=== PATIENT | female | born 2000 | race Caucasian/White ===

== ENCOUNTER 2023-10-27 10:28 | Emergency (ER) | payer MEDICAID, SELFPAY ==
[2023-10-27 10:31] VITALS: BP 134/86; PULSE 77; RESP 18; TEMP 36.7; O2SAT 98; BMI 49.9
--- NOTE | 2023-10-27 10:41 | ED_ITS ---
HPI - URI/Sore Throat General: Chief Complaint: Upper Respiratory Infection Stated Complaint: congestion,cough Time Seen by Provider: 10/27/23 10:34 Source: patient Mode of arrival: ambulatory Limitations: no limitations History of Present Illness: 23-year-old female who states that she h ad cough congestion and sneezing over the last 2 days. She denies any fever denies any dyspnea patient is 90% on room air. No history of any lung issues she is currently 6 months she has no related complaints at this time denies any abdominal pain denies any vaginal bleeding. Associated symptoms: Reports nasal congestion; Deny abdominal pain, chills, chest pain, diarrhea, fever(s), headache(s), nausea or vomiting Review of Systems Const: Denies: fever(s), chills or change in appetite Eyes: Denies: eye discomfort ENMT: Reports: nasal congestion; Denies: throat pain or dental pain Card: Denies: chest pain Resp: Reports: non-productive cough; Denies: dyspnea GI: Denies: abdominal pain, nausea, vomiting or diarrhea Musc: Denies: neck pain or back pain Skin/Breast: Denies: rash Neuro: Denies: headache(s) Physical Exam Const: COMMON NORMALS: no acute distress, patient oriented x3 and healthy appearing HENMT: COMMON NORMALS: normocephalic, atraumatic and TM's normal bilaterally HEAD & SCALP: normocephalic and atraumatic TYMPANIC MEMBRANE: TM's normal bilaterally MOUTH: Normal oral and palatal mucosa present THROAT: posterior oropharynx normal Eye: COMMON NORMALS: conjunctivae normal CONJUNCTIVA: Yes conjunctivae normal Neck/C-Spine: COMMON NORMALS: full ROM and supple Chest: COMMONS NORMALS: normal inspection of the chest Resp: COMMON NORMALS: normal respiratory effort, No retractions, No use of accessory muscles and clear to auscultation bilaterally AUSCULTATION: clear to auscultation bilaterally Cardio: COMMON NORMALS: regular rate, regular rhythm and No murmurs present (Cardio) RATE: regular rate RHYTHM: regular rhythm GI: COMMON NORMALS: Normal to inspection, nondistended, normoactive bowel sounds present, Soft to palpation, non-tender and no masses PALPATION: Yes Soft to palpation Extremity: COMMON NORMALS: normal to inspection and full ROM Neuro: COMMON NORMALS: patient oriented x3, moves all extremities and no focal motor deficits Psych: COMMON NORMALS: mental status grossly normal, Normal thought process present and cooperative THOUGHT PROCESS: Normal thought process present Skin: COMMON NORMALS: no rashes or lesions noted and no wounds GENERAL SKIN EXAM: no rashes or lesions noted Course Vital Signs: Vital signs: Vital Signs Temperature 98.1 F 10/27/23 10:31 Pulse Rate 77 10/27/23 10:31 Respiratory Rate 18 10/27/23 10:31 Blood Pressure 134/86 10/27/23 10:31 Pulse Oximetry 98 10/27/23 10:31 Oxygen Delivery Me thod Room Air 10/27/23 10:31 MDM - URI/Sore Throat Medical Decision Making Patient presents here with likely viral upper restaurant infection she is well- appearing here she has no signs of pneumonia vitals are normal did give her Decadron we will do a respiratory panel it is pending informed her we will call her with results she is to follow-up with her OB return if worsening. Medical Records I reviewed the patient's medical records. No radiology studies performed this visit Discharge Plan Discharge Patient Disposition: Home Clinical Impression: Upper respiratory infection Qualifiers: URI type: unspecified URI Qualified Code(s): J06.9 - Acute upper respiratory infection, unspecified Condition: Stable Discharge Orders: Discharge ED (Routine); Ordered 10/27/23 Ordered By: Amrita Cates Discharge Diet: Advance as tolerated Discharge Activity: Resume usual activity Patient Instructions: Upper Respiratory Infection (ED) Coding Level of Care Code ED Vehicle Detailer for Celeste Sanchez
[2023-10-27] MEDS: dexamethasone 10 mg/mL INJ IM (11:07)
[2023-10-27 11:08] VITALS: BP 134/86; PULSE 77; RESP 18; TEMP 36.7; O2SAT 98
[2023-10-27 12:55] LABS: Adenovirus Not Detected (NOT DETECT); Chlamydia Pneumoniae Not Detected (NOT DETECT); Coronavirus 229E,HKU1,NL63,OC4 Not Detected (NOT DETECT); Human Metapneumovirus Not Detected (NOT DETECT); Human Rhinovirus/Enterovirus Not Detected (NOT DETECT); Influenza A Not Detected (NOT DETECT); Influenza A H1 Not Detected (NOT DETECT); Influenza A H1-2009 Not Detected (NOT DETECT); Influenza A H3 Not Detected (NOT DETECT); Influenza B Not Detected (NOT DETECT); Mycoplasma Pneumoniae Not Detected (NOT DETECT); Parainfluenza Virus Type 1 Not Detected (NOT DETECT); Parainfluenza Virus Type 2 Not Detected (NOT DETECT); Parainfluenza Virus Type 3 Not Detected (NOT DETECT); Parainfluenza Virus Type 4 Not Detected (NOT DETECT); Respiratory Syncytial Virus A Not Detected (NOT DETECT); Respiratory Syncytial Virus B Not Detected (NOT DETECT); SARS-COV-2 Not Detected (NOT DETECT)
== END 2023-10-27 11:09 | disposition home or self-care (01) ==
PROVIDERS: Emergency Provider Emergency Medicine
DX: J06.9 Acute upper respiratory infection, unspecified (principal)
CPT/HCPCS: 87486; 87581; 87633; 96372; 99284; J1100

== ENCOUNTER 2023-11-13 18:07 | Outpatient (CLI) | payer MEDICAID, SELFPAY ==
[2023-11-13] VITALS (14 sets, daily range): BP systolic 99–129; BP diastolic 57–78; PULSE 67–113; RESP 18; TEMP 36.6; BMI 51.2
[2023-11-13 19:26] LABS: Bilirubin Urine Neg (Negative); Blood Urine Neg (Negative); Glucose Urine UA Norm (Normal); Ketones Urine Negative (Negative); Leukocyte Esterase Urine Negative (Negative); Nitrate Urine Negative (Negative); Protein Urine Neg (Negative); RBC Urine 0-4 /hpf (0-2); Specific Gravity, Urine 1.005 (1.005-1.030); Squamous Epithelial Cell Urine 15-25 /hpf (0-5); Urine Appearance Cloudy (CLEAR); Urine Color Light yellow (Yellow); Urobilinogen Urine Neg (Negative); WBC Urine 15-25 /hpf (0-5); pH Urine 7 (5-7)
[2023-11-13 19:27] LABS: Bacteria Urine 1+ /hpf; Mucus Urine TRACE /hpf
[2023-11-13 19:27] LABS: Glucose Point of Care 102 mg/dL (70-110)
[2023-11-13 19:30] LABS: Nitrazine Paper, PH Inconclusive
[2023-11-13 19:43] LABS: Actim Prom Negative
[2023-11-13 19:43] LABS: Amphetamines Screen Urine Negative (Negative); Barbiturates Screen Urine Negative (Negative); Benzodiazepines Screen Urine Negative (Negative); Cocaine Screen Urine Negative (Negative); Opiate Screen Urine Negative (Negative); PCP Screen Urine Negative (Negative); THC Screen Urine Negative (Negative)
[2023-11-13 21:17] LABS: Urine Appearance Clear (CLEAR); Urine Color Colorless (Yellow); pH Urine 6.5 (5-7)
[2023-11-13 21:18] LABS: Bacteria Urine TRACE /hpf; Bilirubin Urine Neg (Negative); Blood Urine Neg (Negative); Glucose Urine UA Norm (Normal); Ketones Urine Negative (Negative); Leukocyte Esterase Urine Negative (Negative); Nitrate Urine Negative (Negative); Protein Urine Neg (Negative); RBC Urine 0-4 /hpf (0-2); Squamous Epithelial Cell Urine 0-4 /hpf (0-5); Urobilinogen Urine Neg (Negative); WBC Urine 0-4 /hpf (0-5)
[2023-11-13] MEDS: lactated ringers 1,000 ML 999 ML IV (21:25)
[2023-11-14 15:41] LABS: Estmated Average Glucose 88; Hemoglobin A1C 4.7 % (4.0-6.0)
== END 2023-11-13 22:30 | disposition home or self-care (01) ==
LOC: OPOB 18:09 → OBGYN 18:10
PROVIDERS: Visit Provider Family Medicine
DX: O26.899 Other specified pregnancy related conditions, unspecified trimester (principal); Z3A.00 Weeks of gestation of pregnancy not specified; N89.8 Other specified noninflammatory disorders of vagina; M54.9 Dorsalgia, unspecified
CPT/HCPCS: 36415; 36416; 51702; 59025; 80306; 81001; 82962; 83036; 83986; 84112; 99211; J7120

== ENCOUNTER → 2023-11-22 07:48 | Outpatient (BNVA) | payer MEDICAID, SELFPAY | PROVIDERS: Visit Provider Nurse Practitioner Women's Health | DX: Z34.90 Encounter for supervision of normal pregnancy, unspecified, unspecified trimester (principal) | CPT/HCPCS: 80307; 81000; 82950; 85025; 86592; 86762; 86803; 86850; 86900; 87086; 87340; 87491; 87591; 87806 ==

== ENCOUNTER 2023-11-25 18:47 | Outpatient (CLI) | payer MEDICAID, SELFPAY ==
[2023-11-25] VITALS (9 sets, daily range): BP systolic 98–146; BP diastolic 53–81; PULSE 84–109; RESP 16; TEMP 36.1; BMI 51.9
[2023-11-25] MEDS: NIFEdipine 10 mg Capsule 30 MG PO (20:11)
--- NOTE | 2023-11-25 20:25 | P.TNLD_ITS ---
OB L&D Triage Visit Information: Date of evaluation: 11/25/23 Comments/Additional reason(s) for visit: 23 y.o. A1 EDC February 17, 2024 At 28 w 0 d First visit here on November 22, 2023 Transfer of care from [place] Presents to L&D c/o uterine contractions Has been having contractions x more than one week States pain is 6-8 out of 10 No bleeding, fluid leakage + movements POBHx: at term x two PMHx: bipolar I disorder ADHD narcolepsy Evaluation: monitor accelerations: Present 15x15 Vital signs: Vital Signs - 24 hr 11/25/23 18:54 11/25/23 18:58 11/25/23 19:13 Temperature Pulse Rate 109 H 95 Respiratory Rate Blood Pressure 136/61 146/81 Oxygen Delivery Me thod Room Air 11/25/23 19:28 11/25/23 19:43 11/25/23 19:48 Temperature Pulse Rate 104 H 101 H Respiratory Rate Blood Pressure 134/69 137/74 Oxygen Delivery Me thod Room Air 11/25/23 20:01 11/25/23 20:14 11/25/23 20:14 Temperature Pulse Rate 89 Respiratory Rate Blood Pressure 129/63 Oxygen Delivery Me thod Room Air 11/25/23 20:28 11/25/23 20:28 11/25/23 20:43 Temperature Pulse Rate 90 Respiratory Rate Blood Pressure 114/58 109/59 Oxygen Delivery Me thod 11/25/23 20:43 11/25/23 20:48 11/25/23 20:48 Temperature Pulse Rate 84 88 Respiratory Rate Blood Pressure 98/53 Oxygen Delivery Me thod 11/25/23 20:57 Temperature 97.0 F L Pulse Rate 88 Respiratory Rate 16 Blood Pressure 98/53 Oxygen Delivery Me thod Care JAVIER Calculator Estimated Delivery Date Method Current WG Current Estimate 02/17/24 Ultrasound #1 28w 1d Other Estimates 01/28/24 LMP (Uncertain) 31w 0d Expected Delivery Route/Plan Weight 310 lbs; 5?5? VS normal Comfortable, in no discomfort Awake, alert Abd: soft, nontender Cervix: long / closed / high Ext: normal External monitor: rare uterine contractions heart tracing good variability Specific Issues/Plans * Morbid obesity * Insufficient care * BIPOLAR Final Diagnosis Final Diagnosis (1) Supervision of other normal : Plan: 28 w 0 d c/o uterine contractions no evidence of labor Likely Rajeev-Spence contractions Plan discharge to home f/u with next OB visit Rest, fluids Labor precautions given Call / return if uterine contractions regular, every 10-15 minutes, strong Or if bleeding, fluid leakage Status: Acute Code(s): Z34.80 - Encounter for supervision of other normal , unspecified trimester Coding Level of Care Code Acute Code for Chg Fwd Diagnoses Supervision of other normal Z34.80 Time Spent (min) 60
== END 2023-11-25 20:57 | disposition home or self-care (01) ==
LOC: OPOB 18:48 → OBGYN 18:49
PROVIDERS: Visit Provider Obstetrics & Gynecology
DX: O26.893 Other specified pregnancy related conditions, third trimester (principal); Z3A.28 28 weeks gestation of pregnancy; R10.9 Unspecified abdominal pain
CPT/HCPCS: 59025; 99211

== ENCOUNTER → 2023-12-01 09:24 | Outpatient (BNVA) | payer MEDICAID, SELFPAY | PROVIDERS: Visit Provider Nurse Practitioner Women's Health | DX: Z34.90 Encounter for supervision of normal pregnancy, unspecified, unspecified trimester (principal) | CPT/HCPCS: 76805 ==

== ENCOUNTER → 2023-12-08 08:23 | Outpatient (BNVA) | payer MEDICAID, SELFPAY | PROVIDERS: Visit Provider Obstetrics & Gynecology | DX: Z34.80 Encounter for supervision of other normal pregnancy, unspecified trimester (principal) | CPT/HCPCS: 81000; 85025; 87086 ==

== ENCOUNTER → 2023-12-14 14:23 | Outpatient (BNVA) | payer MEDICAID, SELFPAY | PROVIDERS: Visit Provider Obstetrics & Gynecology | DX: Z34.00 Encounter for supervision of normal first pregnancy, unspecified trimester (principal) | CPT/HCPCS: 76816 ==

== ENCOUNTER → 2023-12-26 08:07 | Outpatient (BNVA) | payer MEDICAID, SELFPAY | PROVIDERS: Visit Provider Obstetrics & Gynecology | DX: Z34.80 Encounter for supervision of other normal pregnancy, unspecified trimester (principal) | CPT/HCPCS: 81000 ==

== ENCOUNTER 2024-01-03 13:16 | Outpatient (CLI) | payer MEDICAID, SELFPAY ==
[2024-01-03 13:21] VITALS: BMI 51.5
[2024-01-03 13:30] VITALS: RESP 18
[2024-01-03 13:33] VITALS: BP 115/54; PULSE 127
[2024-01-03 13:48] VITALS: BP 119/63; PULSE 100
[2024-01-03 14:01] LABS: Bilirubin Urine 1+ (Negative); Blood Urine Neg (Negative); Glucose Urine UA Norm (Normal); Ketones Urine 1+ (Negative); Leukocyte Esterase Urine 2+ (Negative); Nitrate Urine Negative (Negative); Protein Urine Neg (Negative); Specific Gravity, Urine 1.025 (1.005-1.030); Urine Appearance Hazy (CLEAR); Urine Color Yellow (Yellow); Urobilinogen Urine 1 mg/dL (Negative); pH Urine 5 (5-7)
[2024-01-03 14:03] VITALS: BP 118/59; PULSE 100
[2024-01-03 14:09] LABS: Add Urine Culture? Yes; Bacteria Urine TRACE /hpf; Mucus Urine 3+ /hpf; RBC Urine 0-4 /hpf (0-2); Transitional Epi Cells Urine 0-4 /hpf
[2024-01-03 14:18] VITALS: BP 125/57; PULSE 95
[2024-01-03 14:33] VITALS: RESP 18
== END 2024-01-03 14:50 | disposition home or self-care (01) ==
LOC: OPOB 13:20 → OBGYN 13:28
PROVIDERS: Visit Provider Obstetrics & Gynecology
DX: O26.899 Other specified pregnancy related conditions, unspecified trimester (principal); Z3A.00 Weeks of gestation of pregnancy not specified; R10.9 Unspecified abdominal pain
CPT/HCPCS: 59025; 81001; 87086; 99211

== ENCOUNTER → 2024-01-06 08:30 | Outpatient (BNVA) | payer MEDICAID, SELFPAY | PROVIDERS: Visit Provider Nurse Practitioner Women's Health | DX: Z34.80 Encounter for supervision of other normal pregnancy, unspecified trimester (principal) | CPT/HCPCS: 81000 ==

== ENCOUNTER → 2024-01-20 08:00 | Outpatient (BNVA) | payer MEDICAID, SELFPAY | PROVIDERS: Visit Provider Obstetrics & Gynecology | DX: Z34.80 Encounter for supervision of other normal pregnancy, unspecified trimester (principal) | CPT/HCPCS: 81000; 87081 ==

== ENCOUNTER → 2024-02-01 08:12 | Outpatient (BNVA) | payer MEDICAID, SELFPAY | PROVIDERS: Visit Provider Obstetrics & Gynecology | DX: Z34.80 Encounter for supervision of other normal pregnancy, unspecified trimester (principal) | CPT/HCPCS: 81000 ==

== ENCOUNTER 2024-02-08 19:50 | Outpatient (CLI) | payer MEDICAID, SELFPAY ==
[2024-02-08 19:00] VITALS: BMI 52.9
[2024-02-08 20:11] VITALS: BP 130/78; PULSE 105
[2024-02-08 20:26] VITALS: BP 126/72; PULSE 82
[2024-02-08 20:32] VITALS: TEMP 35.7
[2024-02-08 20:33] VITALS: BP 118/59; PULSE 82
== END 2024-02-08 20:42 | disposition home or self-care (01) ==
LOC: OPOB 19:51 → OBGYN 19:52
PROVIDERS: Visit Provider Obstetrics & Gynecology
DX: O36.8190 Decreased fetal movements, unspecified trimester, not applicable or unspecified (principal); Z3A.00 Weeks of gestation of pregnancy not specified
CPT/HCPCS: 59025; 99211

== ENCOUNTER 2024-02-10 17:39 | Inpatient (IN) | payer MEDICAID, SELFPAY ==
[2024-02-10] VITALS (11 sets, daily range): BP systolic 118–142; BP diastolic 65–93; PULSE 68–95; TEMP 36.4; BMI 52.0
[2024-02-10 18:19] LABS: Basophils % 0.2 %; Eosinophils % 0.3 %; Hematocrit 36.1 % (36-47); Lymphocytes # 1.9 10^3/uL (0.8-4.8); Lymphocytes % 19.2 %; Mean Corpuscular HGB Conc 31.6 g/dL (30-55); Mean Corpuscular Hemoglobin 25.3 pg (27-33); Mean Corpuscular Volume 80.2 fl (85-98); Mean Platelet Volume 11.6 fL (7.4-10.4); Monocytes # 0.4 10^3/uL (0.2-0.9); Monocytes % 4.5 %; Neutrophils % 75.4 %; Nucleated Red Blood Cells % 0 %; Platelet Count 238 10^3/cmm (157-399); Red Cell Distribution Width 15.8 % (12.1-15.1); White Blood Count 9.69 10^3/uL (3.29-11.43)
[2024-02-10] MEDS: miSOPROStol 100 mcg tablet 25 MCG VAGINAL (18:25)
[2024-02-10] MEDS: lactated ringers 1,000 ML 999 ML IV (22:40)
--- NOTE | 2024-02-10 23:42 | PM.OPHPUD ---
Labor & Delivery H&P Update Date of Procedure: February 11, 2024 Date H&P Performed: 02/10/24 H&P update information: I have reviewed H&P completed within last 30 days, I have examined patient prior to procedure and No changes to prior documentation Admission Diagnosis: Preop diagnosis: Intra uterine
[2024-02-11] VITALS (83 sets, daily range): BP systolic 103–166; BP diastolic 56–103; PULSE 63–112; RESP 16; TEMP 36.2–36.9; O2SAT 97–100
[2024-02-11] MEDS: ROPivacaine syringe 100 MG/50 ML SYRINGE 10 MG EPIDURAL ×4 (00:57→11:11)
[2024-02-11] MEDS: dextrose 5%-lactated ringers 1,000 ML 125 ML IV (00:58)
--- NOTE | 2024-02-11 00:59 | ANES.PREANE2 ---
Pre-Anesthetic Assessment Height/Weight: Height 1.65 m Weight 141.974 kg Temp Pulse BP Pulse Ox O2 Del Method 97.5 F L 95 136/67 98 Room Air 02/10/24 18:28 02/11/24 00:57 02/11/24 00:57 02/11/24 00:54 02/10/24 18:00 Preop Diagnosis: Intra uterine labor epidural Familial anesthetic complications: none Was Beta Olu taken within 24 hours: N/A Was Clonidine taken within 24 hours: N/A Last intake: solids @2100, liquids @0000 Social Tobacco and No alcohol Exam alert, oriented x 3, clear to auscultation bilaterally and regular rate & rhythm Airway Mallampati: Class III Dentition: full History/ROS No significant history except as noted Pulmonary None reported CV/HEM None reported None reported Hepatic None reported GI Gastroesophageal Reflux Disease Metabolic Morbid Obesity [facility] [place] None reported Neuropsych None reported Anesthetic Plan ASA status: 3 Anesthesia: Anesthesia Evaluation and Regional (specify below) (epidural ) Risk of > 500 ml blood loss (7ml/kg in children): Yes, adequate IV access and fluids planned Medications/Allergies Home Medications Medication Instructions Recorded Confirmed Last Taken Type ondansetron HCl 4 mg tablet 4 mg PO Q8H PRN nausea and 02/01/24 02/10/24 Unknown Rx vomiting #30 tabs Allergies Allergy/AdvReac Type Severity Reaction Status Date / Time diphenhydramine Allergy ALGY-Difficulty Verified 02/10/24 14:37 [From Benadryl] Breathing Current Medications Generic Name Dose Route Start Last Admin Trade Name Freq PRN Reason Stop Dose Admin Lactated Ringer's 1,000 mls @ 999 mls/hr 02/10/24 17:33 02/10/24 22:40 Lactated Ringers IV 999 mls/hr .Q1H1M PRN Administration Per L&D Rescitation Protocol Dextrose/Lactated Ringer's 1,000 mls @ 125 mls/hr 02/10/24 17:45 02/11/24 00:58 Dextrose 5%-Lactated Ringers IV 125 mls/hr .Q8H JOURDAN Administration Ropivacaine 100 mg in 50 mls @ 10 mls/hr 02/10/24 23:30 02/11/24 00:57 Naropin Syringe EPIDURAL 10 mls/hr .Q5H JOURDAN Administration Misoprostol 25 mcg 02/10/24 18:30 02/10/24 18:25 Misoprostol 100 Mcg Tablet VAGINAL 02/11/24 02:31 25 mcg Q4H JOURDAN Administration PFSH Anesthesia Medical History Sleep apnea Bipolar 1 disorder Oppositional defiant disorder Narcolepsy ADHD No pertinent past medical history neghx: htn,dm,thryoid,dvt/pe PCP: none History of gestational diabetes Surgical History H/O dilation and curettage (~09/2022) Family History Grandmother Breast cancer maternal Mother Diabetes Father Diabetes Heart disease Hypertension Hyperlipidemia Stroke Thyroid disease Denies family history of Colon cancer Ovarian cancer Prostate cancer Uterine cancer Data Anesthesia 02/10/24 18:05 Short CBC 02/10/24 Range/Units 18:05 WBC 9.69 (3.29-11.43) 10^3/uL Hgb 11.40 (11.27-16.99) g/dL Hct 36.1 (36-47) % MCV 80.2 L (85-98) fl Plt Count 238 (157-399) 10^3/cmm Neut % (Auto) 75.4 % Neut # (Auto) 7.30 (1.8-7.7) 10^3/uL Blood Bank 02/10/24 18:05 Blood Type A Positive Rho(D) Type Rh positive Antibody Screen Negative Cardiac Studies: No Data to Display Anesthesia Procedures Epidural Time Out Performed: Yes Consents Signed: Procedure Consent Consent: requested by attending/covering physician, from patient, risks and benefits reviewed and patient agrees to proceed Lumbar Level: L3-L4 Epidural position: sitting Epidural procedure: sterile prep of area, 1% lidocaine to numb the area, 18 g needle, negative for paresthesia passed, neg for paresthesia, test dose given, 1.5% xylocaine 1:200k epi, 0.2% Ropivacaine bolus ml (5), placed PCEA, no systemic response, sterile dressing applied, L.U.D. no apparent complications and 0.2% Ropiavacaine @ mls/hr (13) Additional Comments: epidural placement attempted x3, 3rd attempt successful, VISH 7cm and catheter easily threaded to 5cm in the space. Pt educated on [employer], and reporting decreased pain with contractions.
[2024-02-11] MEDS: miSOPROStol 100 mcg tablet 25 MCG VAGINAL (03:08)
[2024-02-11] MEDS: oxytocin 30 UNIT/500 ML BAG IV (08:25)
--- NOTE | 2024-02-11 11:43 | PM.DELIVERY ---
Delivery Note: Date of delivery: February 11, 2024 Pre-delivery diagnoses: Term Late care Obesity Post-delivery diagnoses: Same Term delivered Procedure: A spontaneous vaginal delivery Delivering Physician: Micha Kulkarni MD Estimated blood loss (mL): 300 Findings: Female infant weight 3270 Apgars 8/9 Pre-Delivery Course: The patient is a 23yo G[1]P[0] at [] weeks EGA who has been receiving care from [facility]. She was admitted for elective induction HPI: Received late care. Daily vitamins since start of care. labs have all been normal, including negative for HIV. She was found to negative for Group B Strep from screening at 36 weeks. She has loss approximately 4 lbs since that start of care at 27 weeks. She denies a history of HTN during . Glucose tolerance screening for gestational diabetes was negative. Delivery: The patient was noted to be complete and pushing, when the nurse call, shortly after that the kinga's came out of the room notifying she was pushing the baby out, she was placed in the dorsal lithotomy position by nurse and had a precipitus delivery. The patient was noted to have epidural anesthesia. At 1123 the patient delivered a viable 39 weeks female infant weighing 3270 g with scores of 8 and 9 at one and five minutes, respectively. The vertex was delivered spontaneously over intact perineum. The was easily delivered and the oropharynx and nasopharynx was bulb suctioned by nursing personnel. The infant was noted to have spontaneous cry and spontaneous movement of all four extremities. The cord was clamped x 2 and cut and noted to have 2 arteries and one vein. The infant was passed to the mother's abdomen where nursing personnel were in attendance. The placenta delivered intact spontaneously and the uterus was explored. 20 units of Pitocin was placed in the IV bag to firm the uterus. Examination of the cervix and vaginal vault did not reveal any lacerations. A vaginal pack was then placed. Examination of the perineum showed no lacerations. The vaginal pack was then removed. The patient tolerated this procedure well, and recovered in L&D with her in their LDR room. All sponge and needle counts were correct. Post-Delivery Status: Good and stable History History History 4 Term 2 0 Miscarriages/Ectopic 1 Living Children 2 Coding Level of Care Code Acute Code for Chg Fwd
[2024-02-11] MEDS: ibuprofen 800 mg tablet PO ×2 (14:50→20:08)
[2024-02-11] MEDS: lanolin oint 7 gm 1 APPLIC TOPICAL (20:08)
[2024-02-12 00:47] LABS: Hematocrit 32.2 % (36-47); Mean Corpuscular HGB Conc 32.3 g/dL (30-55); Mean Corpuscular Hemoglobin 25.5 pg (27-33); Mean Corpuscular Volume 78.9 fl (85-98); Mean Platelet Volume 11.9 fL (7.4-10.4); Platelet Count 219 10^3/cmm (157-399); Red Blood Count 4.08 10^6/uL (3.85-5.65); Red Cell Distribution Width 15.7 % (12.1-15.1); White Blood Count 11.11 10^3/uL (3.29-11.43)
[2024-02-12 03:27] VITALS: BP 122/83; PULSE 77; RESP 16; TEMP 36.7; O2SAT 97
[2024-02-12] MEDS: ibuprofen 800 mg tablet PO (08:45)
[2024-02-12] MEDS: PRENATAL VIT NO.130/IRON/FOLIC 1 EACH TABLET PO (08:45)
[2024-02-12] MEDS: docusate sodium 100 mg Capsule PO (08:45)
[2024-02-12 10:11] VITALS: BP 107/72; PULSE 99; RESP 15; TEMP 36.6; TEMP 36.7; O2SAT 98
--- NOTE | 2024-02-12 10:48 | P.DS_ITS ---
Discharge Providers COMPOSITE TECHNICIAN Date of Admission: 02/10/24 17:39 Date of Discharge: 02/12/24 Attending Provider at Admission: Micha Kulkarni MD Attending Provider at Discharge: Micha Kulkarni MD Primary COMPOSITE TECHNICIAN: Micha Kulkarni MD Reason for Visit Reason for Visit: IOL Hospital Course Hospital Course Ms. Yuan is a 23 year old new patient with unknown LMP 04/23/2023 (uncertain) JAVIER 02/17/2024 based on 6 week sonogram, placing her at 39-1/7 weeks gestation. Admitted to labor and delivery for elective induction. Misoprostol was given for cervical ripening then follow-up with oxytocin for labor augmentation. She progressed to have a rapidly progressing and precipitous delivery without complications. She delivered a term female infant, with a bir thweight of 3270 with Apgars 8/9. observation was uneventful. Tolerating diet well. Ambulating without difficulty. She is afebrile hemodynamically stable day 1. She was counseled regarding pelvic rest for 6 weeks (no sex, no tampons, no vaginal douches). Return to the emergency room if any fever, increased bleeding or pain. Information Peripartum Data: Delivery Method: Vaginal Physical Exam Narrative: GA; alert and oriented x 3 HEENT: normal Breasts: engorged Nipples - skin intact Lungs; clear to auscultation Heart: regular rhythm, no murmurs. Abd: Appropriately tender. BS+. Uterine fundus below umbilicus. No Fundal Tenderness. Perineum: normal lochia. Extremities: no edema, no cyanosis, no tenderness. Urinary Catheter Management: Rice: Cath Placed During This Visit: yes, but has since been removed by the nurse Reason for Continuing Indwelling Catheter: Decision to DC Catheter Urinary Catheter Date of Insertion: 02/11/24 Urinary Catheter Time of Insertion: 01:42 Date Urinary Catheter Removed: 02/11/24 Time Urinary Catheter Discontinued: 11:30 History History History 4 Term 2 0 Miscarriages/Ectopic 1 Living Children 2 Discharge Data Studies Completed and Pending Laboratory Results WBC 11.11 10^3/uL (3.29-11.43) 02/12/24 00:15 RBC 4.08 10^6/uL (3.85-5.65) 02/12/24 00:15 Hgb 10.40 g/dL (11.27-16.99) L 02/12/24 00:15 Hct 32.2 % (36-47) L 02/12/24 00:15 MCV 78.9 fl (85-98) L 02/12/24 00:15 MCH 25.5 pg (27-33) L 02/12/24 00:15 MCHC 32.3 g/dL (30-55) 02/12/24 00:15 RDW 15.7 % (12.1-15.1) H 02/12/24 00:15 Plt Count 219 10^3/cmm (157-399) 02/12/24 00:15 MPV 11.9 fL (7.4-10.4) H 02/12/24 00:15 Neut % (Auto) 75.4 % 02/10/24 18:05 Lymph % (Auto) 19.2 % 02/10/24 18:05 [place] % (Auto) 4.5 % 02/10/24 18:05 Eos % (Auto) 0.3 % 02/10/24 18:05 Baso % (Auto) 0.2 % 02/10/24 18:05 Neut # (Auto) 7.30 10^3/uL (1.8-7.7) 02/10/24 18:05 Lymph # (Auto) 1.9 10^3/uL (0.8-4.8) 02/10/24 18:05 [place] # (Auto) 0.4 10^3/uL (0.2-0.9) 02/10/24 18:05 Eos # (Auto) 0.0 10^3/uL (0.0-0.8) 02/10/24 18:05 Baso # (Auto) 0.0 10^3/uL (0.0-0.1) 02/10/24 18:05 Nucleated RBC % (auto) 0 % 02/10/24 18:05 Nucleated RBCs # 0.0 /100WBC 02/10/24 18:05 Blood Type A Positive 02/10/24 18:05 Rho(D) Type Rh positive 02/10/24 18:05 Antibody Screen Negative 02/10/24 18:05 Vitals Last Vital Signs Temp 98.0 F 02/12/24 10:11 Pulse 99 02/12/24 10:11 Resp 15 02/12/24 10:11 BP 107/72 02/12/24 10:11 Pulse Ox 98 02/12/24 10:11 O2 Del Method Room Air 02/12/24 10:11 Results Labs OB ([facility]): Obstetrics US 12/14/23 Blood Type A Positive 02/10/24 Antibody Screen Negative 02/10/24 Hct 32.2 % (36-47) L 02/12/24 Hgb 10.40 g/dL (11.27-16.99) L 02/12/24 Rho(D) Type Rh positive 02/10/24 Plt Count 219 10^3/cmm (157-399) 02/12/24 Hep Bs Antigen Non-reactive (Nonreactive) 11/22/23 Hepatitis C Antibody Non-reactive (Nonreactive) 11/22/23 Rubella IgG Antibody 124.1 IU/mL (0.0-10.0) H 11/22/23 RPR Nonreactive (Nonreactive) 11/22/23 HIV 1&2 Ab & HIV 1 Ag Non-reactive (Non-Reactiv) 11/22/23 C.trachomatis RNA (TMA) Not detected (NOT DETECTED) N.gonorrhoeae RNA (TMA) Not detected (NOT DETECTED) T. vaginalis Amp RNA Not detected (NOT DETECTED) 11/22/23 Chlamydia/GC Comment See note 11/22/23 Glucose 1 Hr 50 gm 121 mg/dL (85-140) 11/22/23 Hemoglobin A1c 4.7 % (4.0-6.0) 11/13/23 Urine Opiates Screen Negative ng/mL (Negative) 11/22/23 Ur Barbiturates Screen Negative ng/mL (Negative) 11/22/23 Ur Phencyclidine Scrn Negative ng/mL (Negative) 11/22/23 Ur Amphetamines Screen Negative ng/mL (Negative) 11/22/23 U Benzodiazepines Scrn Negative ng/mL (Negative) 11/22/23 Urine Cocaine Screen Negative ng/mL (Negative) 11/22/23 U Marijuana (THC) Screen Negative ng/mL (Negative) 11/22/23 Micro Urine Specimen 01/03/24 Discharge Plan Discharge Patient Disposition: Home Condition: Stable Prescriptions: New acetaminophen 325 mg capsule 325 mg PO Q4H PRN (Reason: fever or pain) Qty: 60 0RF ibuprofen 800 mg tablet 800 mg PO TID PRN (Reason: pain) Qty: 60 0RF docusate sodium [Colace] 100 mg capsule 100 mg PO BID Qty: 60 0RF ferrous sulfate [Iron (ferrous sulfate)] 325 mg (65 mg iron) tablet 325 mg PO BID Qty: 60 0RF Discontinued ondansetron HCl 4 mg tablet 4 mg PO Q8H PRN (Reason: nausea and vomiting) Qty: 30 1RF Discharge Orders: Discharge Order (Routine); Ordered 02/12/24 Ordered By: Micha Kulkarni Referrals: Micha Kulkarni MD [Physician] - 6 Weeks Discharge Diet: Usual diet Discharge Activity: Limit activity as instructed Patient Instructions: Depression (DC), Opioid Safety (DC), Preeclampsia and Eclampsia After Delivery (GEN), Hemorrhage (DC), OB Discharge Report, OB Food/Drug Interaction Guide, Opioid Safety, OB Home Care, OB Vaginal Deliveries - [facility], Abnormal Bleeding Activity Restrictions/Additional Instructions: 1. Please call [facility] clinic on next working day to make your appointment in 6 weeks. 2. Please stay home until you come back to the clinic on first post- hospatilization check up. 3. Please follow instructions on your medications CAREFULLY. 4. If you have abdominal incision, do not cover it unless dressing is necessary because of drainage. OK to shower, but avoid bath. Leave steri-strips until they fall off. If they are still on one week after surgery, you may remove them. 5. If you had vaginal surgery or vaginal repair, Dr. Kulkarni may instruct you to take SITZ bath. 6. Yellow, blood tinged odorous vaginal discharge is usually normal after hysterectomy or vaginal surgeries. 7. No SEXUAL INTERCOURSE, tampons, or douches until you are completely released from the post-operative care. 8. Avoid constipation by eating right and maybe using some Metamucil or Milk of Magnesia. 9. All prescription refills are given during the working hours. Please do no wait till it runs out. Call the clinic at [phone] before your medication runs out. The clinic will get in touch with your doctor to prescribe medications if necessary. 10. Please remain within 40 mile radius from our hospital because emergencies do happen now and then during the post-operative period. 11. If you have stairs at home, take one step at a time slowly and minimize the number of trips. It helps to stay in one floor for the next few days. No lifting except what you can lift by one hand until you are released from the post-operative care. 12. Driving is discouraged until you are well healed. It may be 3-4 weeks before you feel strong enough to drive. You should be able to turn and look through the rear window without pain and you should be able to push the brake pedal very hard without pain before you drive. No fast rules, but SAFETY should be your primary concern. DO NOT drive if you are on sedating medications such as narcotics. 13. Call the clinic (during working hours) to make urgent appointment or go to the Emergency room, if any of the following occurs: i. Vaginal bleeding becomes heavy, more than a period. ii. Incision becomes red and sore, or drains pus. iii. Your TEMPERATURE is over 100.4F or you have chill. iv. IV site becomes red and swollen (a little ``knot?? is usually OK) v. Persistent nausea and vomiting vi. Persistent constipation or diarrhea vii. Rash or allergic reaction to medications. Discharge Attestations COMPOSITE TECHNICIAN Time Spent in Discharge Care*: greater than 30 min Coding Level of Care Code Acute Code for Chg Daniel
[2024-02-12 12:45] VITALS: BP 136/72; PULSE 82; RESP 18; TEMP 36.4; O2SAT 98
--- NOTE | 2024-02-12 14:28 | ANE.PACU2 ---
Inpatient post-anesthesia follow up: Airway intact: Yes Vital signs: Temperature 97.6 F Pulse Rate 82 Respiratory Rate 18 Blood Pressure 136/72 Pulse Oximetry 98 Oxygen Delivery Me thod Room Air Oxygen Flow Rate Fraction of Inspir ed Oxygen Hydration adequate: Yes Nausea and vomiting: No Pain level: 1 Mental status: Baseline Epidural Start/End: Epidural Start Date: 02/11/24 Epidural Start Time: 00:17 Epidural End Date: 02/11/24 Epidural End Time: 14:04
== END 2024-02-12 12:50 | disposition home or self-care (01) | DRG 807 ==
LOC: OPOB 17:40 → OBGYN 17:40
PROVIDERS: Admitting Provider Obstetrics & Gynecology; Visit Provider Obstetrics & Gynecology
DX: O99.214 Obesity complicating childbirth (principal); Z37.0 Single live birth; Z3A.39 39 weeks gestation of pregnancy
CPT/HCPCS: 36415; 51702; 59025; 59409; 84315; 85025; 85027; 86850; 86900; J2590; J2795; J7120; J7121

== ENCOUNTER 2024-02-14 19:50 | Emergency (ER) | payer MEDICAID, SELFPAY ==
[2024-02-14] VITALS (7 sets, daily range): BP systolic 137–152; BP diastolic 88–112; PULSE 70–83; RESP 18; TEMP 36.8; O2SAT 95–99; BMI 50.8
[2024-02-14 20:25] LABS: Basophils % 0.3 %; Eosinophils # 0.2 10^3/uL (0.0-0.8); Eosinophils % 2.9 %; Hematocrit 31.9 % (36-47); Lymphocytes # 1.8 10^3/uL (0.8-4.8); Lymphocytes % 25.8 %; Mean Corpuscular HGB Conc 31.7 g/dL (30-55); Mean Corpuscular Hemoglobin 25.4 pg (27-33); Mean Corpuscular Volume 80.2 fl (85-98); Mean Platelet Volume 11.2 fL (7.4-10.4); Monocytes # 0.4 10^3/uL (0.2-0.9); Monocytes % 5.7 %; Neutrophils # 4.64 10^3/uL (1.8-7.7); Nucleated Red Blood Cells % 0 %; Platelet Count 263 10^3/cmm (157-399); Red Blood Count 3.98 10^6/uL (3.85-5.65); Red Cell Distribution Width 15.9 % (12.1-15.1); White Blood Count 7.14 10^3/uL (3.29-11.43)
[2024-02-14 20:43] LABS: Alanine Aminotransferase 16 U/L (0-33); Albumin Level 3.2 g/dL (3.5-5.2); Alkaline Phosphatase 138 U/L (35-105); Anion Gap 11.1 (5-19); Aspartate Amino Transferase 16 U/L (0-32); Blood Urea Nitrogen 13 mg/dL (6-20); Calcium 9.2 mg/dL (8.5-10.5); Carbon Dioxide 26 mmol/L (22-29); Chloride 106 mmol/L (98-107); Creatinine Clr Calc Pharmacy 181.4177; Globulin 2.9 g/dL (1.3-4.6); Glomerular Filtration Rate 102.8 mL/min (90-130); Glucose 93 mg/dL (65-115); Lactate Dehydrogenase 138 U/L (135-214); Osmolality Calculated 288 mOsm/kg (285-295); Potassium 4.1 mmol/L (3.5-5.1); Sodium 139 mmol/L (136-145); Total Bilirubin 0.2 mg/dL (0.15-1.2); Total Protein 6.1 g/dL (6.6-8.7)
--- NOTE | 2024-02-14 21:06 | ED_ITS ---
HPI - General Adult 2 General: Chief complaint: General Medical Stated complaint: Hbp swelling headache OB sent Time Seen by Provider: 02/14/24 20:50 History of Present Illness: Patient presents to the ER with complaints of 3-day history of hand leg and face swelling as well as high blood pressure and headache. Patient is status post vaginal delivery without complications x 3 days. Patient stated they were watching her blood pressure while she was but she was on no medicine. Patient does not normally get headaches. Patient said when she was she was frequently swollen but it would go down at night or when she lay down but this is not going down. Patient delivery was done by Dr. Kulkarni Review of Systems 2 General: Reports: 10 or more systems reviewed and unremarkable except in HPI and below PFSH ED 2 PFSH: Medical History Sleep apnea Bipolar 1 disorder Oppositional defiant disorder Narcolepsy ADHD No pertinent past medical history neghx: htn,dm,thryoid,dvt/pe PCP: none History of gestational diabetes Surgical History H/O dilation and curettage (~09/2022) Family History Grandmother Breast cancer maternal Mother Diabetes Father Diabetes Heart disease Hypertension Hyperlipidemia Stroke Thyroid disease Denies family history of Colon cancer Ovarian cancer Prostate cancer Uterine cancer Physical Exam 2 Const: COMMON NORMALS: no acute distress, average body habitus, patient oriented x3, no limitations, healthy appearing, alert and well nourished HENMT: COMMON NORMALS: normocephalic, atraumatic, hearing grossly normal bilaterally, external ears normal, Normal external nose present and moist oral mucous membranes HEAD & SCALP: normocephalic and atraumatic NOSE: Normal external nose present EXTERNAL EAR: Yes external ears normal Neck/C-Spine: COMMON NORMALS: no JVD Chest: COMMONS NORMALS: normal inspection of the chest and normal palpation of entire chest wall Resp: COMMON NORMALS: normal respiratory effort, No retractions, No use of accessory muscles and clear to auscultation bilaterally AUSCULTATION: clear to auscultation bilaterally Cardio: COMMON NORMALS: no JVD, regular rate, regular rhythm, S1 normal heart sound present, S2 normal heart sound present, No gallops present (Cardio), No clicks present (Cardio), No murmurs present (Cardio) and No rub (Cardio) R ATE: regular rate RHYTHM: regular rhythm HEART SOUNDS: S1 normal heart sound present and S2 normal heart sound present GI: COMMON NORMALS: Normal to inspection, nondistended, normoactive bowel sounds present, Soft to palpation, non-tender, No hepatosplenomegaly present and no masses PALPATION: Yes Soft to palpation and Yes No hepatosplenomegaly present Extremity: NARRATIVE EXTREMITY EXAM: 2+ pitting edema up to knees in the bila teral lower extremities Neuro: COMMON NORMALS: patient oriented x3 SENSORIUM/ORIENTATION: Yes alert Course 2 Vital Signs: Vital signs: Vital Signs Temperature 98.2 F 02/14/24 20:23 Pulse Rate 96 02/15/24 02:02 Respiratory Rate 18 02/14/24 20:23 Blood Pressure 136/91 02/15/24 02:02 Pulse Oximetry 96 02/15/24 02:02 Oxygen Delivery Me thod Room Air 02/14/24 23:59 MDM - General Adult Medical Decision Making Discussed this patient with Dr. Kulkarni, we will get a protein creatinine ratio if hide we will admit for preeclampsia if low we will treat headache and blood pressure and discharge home. Lab work was obtained protein creatinine ratio was normal, patient was given [place], Toradol, 20 mg nifedipine, this helped the patient's headache and lowered her blood pressure by 20 points. Patient be discharged home and prescription of nifedipine will be sent into the pharmacy. Medical Records I reviewed the patient's medical records. Lab Data I reviewed the patient's lab results. 02/14/24 20:11 02/14/24 20:11 Laboratory Results WBC 7.14 10^3/uL (3.29-11.43) 02/14/24 20:11 RBC 3.98 10^6/uL (3.85-5.65) 02/14/24 20:11 Hgb 10.10 g/dL (11.27-16.99) L 02/14/24 20:11 Hct 31.9 % (36-47) L 02/14/24 20:11 MCV 80.2 fl (85-98) L 02/14/24 20:11 MCH 25.4 pg (27-33) L 02/14/24 20:11 MCHC 31.7 g/dL (30-55) 02/14/24 20:11 RDW 15.9 % (12.1-15.1) H 02/14/24 20:11 Plt Count 263 10^3/cmm (157-399) 02/14/24 20:11 MPV 11.2 fL (7.4-10.4) H 02/14/24 20:11 Neut % (Auto) 65.0 % 02/14/24 20:11 Lymph % (Auto) 25.8 % 02/14/24 20:11 [place] % (Auto) 5.7 % 02/14/24 20:11 Eos % (Auto) 2.9 % 02/14/24 20:11 Baso % (Auto) 0.3 % 02/14/24 20:11 Neut # (Auto) 4.64 10^3/uL (1.8-7.7) 02/14/24 20:11 Lymph # (Auto) 1.8 10^3/uL (0.8-4.8) 02/14/24 20:11 [place] # (Auto) 0.4 10^3/uL (0.2-0.9) 02/14/24 20:11 Eos # (Auto) 0.2 10^3/uL (0.0-0.8) 02/14/24 20:11 Baso # (Auto) 0.0 10^3/uL (0.0-0.1) 02/14/24 20:11 Nucleated RBC % (auto) 0 % 02/14/24 20:11 Nucleated RBCs # 0.0 /100WBC 02/14/24 20:11 Sodium 139 mmol/L (136-145) 02/14/24 20:11 Potassium 4.1 mmol/L (3.5-5.1) 02/14/24 20:11 Chloride 106 mmol/L (98-107) 02/14/24 20:11 Carbon Dioxide 26 mmol/L (22-29) 02/14/24 20:11 Anion Gap 11.1 (5-19) 02/14/24 20:11 BUN 13 mg/dL (6-20) 02/14/24 20:11 Creatinine 0.7 mg/dL (0.5-0.9) 02/14/24 20:11 GFR Calculation 102.8 mL/min (90-130) 02/14/24 20:11 Glucose 93 mg/dL (65-115) 02/14/24 20:11 Calculated Osmolality 288 mOsm/kg (285-295) 02/14/24 20:11 Calcium 9.2 mg/dL (8.5-10.5) 02/14/24 20:11 Total Bilirubin 0.2 mg/dL (0.15-1.2) 02/14/24 20:11 AST 16 U/L (0-32) 02/14/24 20:11 ALT 16 U/L (0-33) 02/14/24 20:11 Alkaline Phosphatase 138 U/L (35-105) H 02/14/24 20:11 Lactate Dehydrogenase 138 U/L (135-214) 02/14/24 20:11 Total Protein 6.1 g/dL (6.6-8.7) L 02/14/24 20:11 Albumin 3.2 g/dL (3.5-5.2) L 02/14/24 20:11 Globulin 2.9 g/dL (1.3-4.6) 02/14/24 20:11 Urine Color Red (Yellow) A 02/14/24 21:05 Urine Appearance Cloudy (CLEAR) A 02/14/24 21:05 Urine pH 7 (5-7) 02/14/24 21:05 Ur Specific [place] 1.015 (1.005-1.030) 02/14/24 21:05 Urine Protein Trace (Negative) 02/14/24 21:05 Urine Glucose (UA) Norm (Normal) 02/14/24 21:05 Urine Ketones Negative (Negative) 02/14/24 21:05 Urine Blood 3+ (Negative) H 02/14/24 21:05 Urine Nitrate Negative (Negative) 02/14/24 21:05 Urine Bilirubin Neg (Negative) 02/14/24 21:05 Urine Urobilinogen Neg mg/dL (Negative) 02/14/24 21:05 Ur Leukocyte Esterase Negative (Negative) 02/14/24 21:05 Urine RBC 50-80 /hpf (0-2) H 02/14/24 21:05 Urine WBC None /hpf (0-5) 02/14/24 21:05 Ur Squamous Epith Cells 0-4 /hpf (0-5) H 02/14/24 21:05 Amorphous Sediment Not Reportable 02/14/24 21:05 Urine Bacteria Trace /hpf (NONE) 02/14/24 21:05 U Random Total Protein 13 mg/dL 02/14/24 21:05 Urine Creatinine 75 mg/dL (28-217) 02/14/24 21:05 Protein/Creatinin Ratio 0.17 mg/mg CR 02/14/24 21:05 No radiology studies performed this visit Discharge Plan Discharge Patient Disposition: Home Clinical Impression: hypertension, Headache Condition: Stable Prescriptions: New nifedipine 10 mg capsule 10 mg PO TID Qty: 30 0RF No Action ibuprofen 800 mg tablet 800 mg PO TID PRN (Reason: pain) Qty: 60 0RF Iron (ferrous sulfate) 325 mg (65 mg iron) tablet 325 mg PO BID Qty: 60 0RF Colace 100 mg capsule 100 mg PO BID Qty: 60 0RF acetaminophen 325 mg capsule 325 mg PO Q4H PRN (Reason: fever or pain) Qty: 60 0RF Discharge Orders: Discharge ED (Routine); Ordered 02/15/24 Ordered By: Crow Metz Patient Instructions: Hypertension, Headache Activity Restrictions/Additional Instructions: Your evaluation ER including lab work and urinalysis did not show any signs of preeclamptic abnormalities. You are given nifedipine for your blood pressure in ER. You have been given a prescription for nifedipine to take at least until you see your primary care doctor and/or [facility] for follow-up. Please do not take the nifedipine if your blood pressure is 120/80 or less. Please call in the morning to Dr. Kulakrni's office and see if he can arrange an appointment quicker than your normal 6-week follow-up. Otherwise please follow-up with your family practice physician within the next 7 to 10 days for further evaluation and treatment. Coding Level of Care Code ED Renal Medicine Physician for Celeste Sanchez
[2024-02-14 21:19] LABS: Add Urine Microscopic? YES; Bilirubin Urine Neg (Negative); Blood Urine 3+ (Negative); Glucose Urine UA Norm (Normal); Ketones Urine Negative (Negative); Leukocyte Esterase Urine Negative (Negative); Nitrate Urine Negative (Negative); Protein Urine Trace (Negative); RBC Urine 50-80 /hpf (0-2); Specific Gravity, Urine 1.015 (1.005-1.030); Urine Appearance Cloudy (CLEAR); Urine Color Red (Yellow); Urobilinogen Urine Neg (Negative); pH Urine 7 (5-7)
[2024-02-14 21:20] LABS: Add Urine Culture? Yes; Bacteria Urine TRACE /hpf; Squamous Epithelial Cell Urine 0-4 /hpf (0-5)
[2024-02-14 22:36] LABS: Urine Creatinine 75 mg/dL (28-217); Urine Protein Random 13 mg/dL
[2024-02-14 22:38] LABS: UPRO/UCREAT Ratio 0.17 mg/mg CR
[2024-02-14] MEDS: HYDROcodone-acetaminophen 5-325 mg Tablet 1 TAB PO (23:59)
[2024-02-14] MEDS: NIFEdipine 10 mg Capsule PO (23:59)
[2024-02-15 00:12] VITALS: BP 138/106; PULSE 77; O2SAT 96
[2024-02-15 00:33] VITALS: BP 140/89; PULSE 81; O2SAT 98
[2024-02-15 01:03] VITALS: BP 129/94; PULSE 91; O2SAT 96
[2024-02-15] MEDS: NIFEdipine 10 mg Capsule PO (01:29)
[2024-02-15] MEDS: ketorolac 60 mg/2 mL INJ IM (01:29)
[2024-02-15 01:33] VITALS: BP 145/96; PULSE 91; O2SAT 96
[2024-02-15 02:02] VITALS: BP 136/91; PULSE 96; O2SAT 96
[2024-02-15 02:25] VITALS: BP 136/91
== END 2024-02-15 02:27 | disposition home or self-care (01) ==
PROVIDERS: Emergency Medicine; Emergency Provider Emergency Medicine
DX: O16.5 Unspecified maternal hypertension, complicating the puerperium (principal); O90.89 Other complications of the puerperium, not elsewhere classified; R51.9 Headache, unspecified
CPT/HCPCS: 36415; 80053; 81001; 82570; 83615; 84156; 85025; 87086; 96372; 99284; J1885